=== PATIENT | male | born 1995 | race Caucasian/White ===

== ENCOUNTER 2019-06-21 10:05 | Emergency (ER) | payer OTHER ==
--- NOTE | 2019-06-21 10:30 | ERPHSYRPT ---
- History of Present Illness Time Seen by Provider: 06/21/19 10:30 Source: patient, family Exam Limitations: no limitations Patient Subjective Stated Complaint: states started having lower back pain last night after stooping down to feed his son his bottle. on awakening this am he states pain is much worse. unable to lie flat and is having difficulty with walking due to pain. denies any injury. denies any difficulty with urination. Triage Nursing Assessment: in waiting room was on knees leaning against chair. was able to ambulate to room per self holding lower back. skin w/d, color normal. Physician History: 23 y/o white male presents with left low back pain. no injury. pain began this am. has worsened. vomited tylenol up. vomited because pain so bad Timing/Duration: today Method of Injury: other (no injury) Quality: sharp Back Pain Location: lumbar spine Severity of Pain-Max: moderate Severity of Pain-Current: moderate Modifying Factors: Improves With: movement Associated Symptoms: lower back pain, muscle spasms (left) Previous symptoms: no prior history Allergies/Adverse Reactions: No Known Drug Allergies Allergy (Unverified 06/21/19 10:18) Hx Tetanus, Diphtheria Vaccination/Date Given: No Hx Influenza Vaccination/Date Given: No Hx Pneumococcal Vaccination/Date Given: No - Review of Systems Constitutional: No Symptoms Eyes: No Symptoms Ears, Nose, & Throat: No Symptoms Respiratory: No Symptoms Cardiac: No Symptoms Abdominal/Gastrointestinal: No Symptoms Genitourinary Symptoms: No Symptoms Musculoskeletal: Back Pain Skin: No Symptoms Neurological: No Symptoms Psychological: No Symptoms Endocrine: No Symptoms Hematologic/Lymphatic: No Symptoms Immunological/Allergic: No Symptoms All Other Systems: Reviewed and Negative - Past Medical History Pertinent Past Medical History: Yes Neurological History: No Pertinent History ENT History: No Pertinent History Cardiac History: No Pertinent History Respiratory History: No Pertinent History Endocrine Medical History: No Pertinent History Musculoskeletal History: No Pertinent History GI Medical History: Diverticulosis History: No Pertinent History Psycho-Social History: No Pertinent History Male Reproductive Disorders: No Pertinent History - Past Surgical History Past Surgical History: No Neuro Surgical History: No Pertinent History Cardiac: No Pertinent History Respiratory: No Pertinent History Gastrointestinal: No Pertinent History Genitourinary: No Pertinent History Musculoskeletal: No Pertinent History Male Surgical History: No Pertinent History - Social History Smoking Status: Never smoker Exposure to second hand smoke: No Drug Use: marijuana Patient Lives Alone: No - Nursing Vital Signs Nursing Vital Signs: Initial Vital Signs Temperature 97.5 F 06/21/19 10:10 Pulse Rate 70 06/21/19 10:10 Respiratory Rate 18 06/21/19 10:10 Blood Pressure 120/75 06/21/19 10:10 O2 Sat by Pulse Oximetry 97 06/21/19 10:10 Pain Scale Pain Intensity [Back] 6 Pain Intensity 6 - Physical Exam General Appearance: mild distress, alert, anxiety Eye Exam: PERRL/EOMI, eyes nml inspection Ears, Nose, Throat Exam: normal ENT inspection, moist mucous membranes Neck Exam: normal inspection, non-tender, supple, full range of motion Respiratory Exam: normal breath sounds, lungs clear, airway intact, No chest tenderness, No respiratory distress Cardiovascular Exam: regular rate/rhythm, normal heart sounds, normal peripheral pulses Gastrointestinal Exam: soft, normal bowel sounds, No tenderness Rectal Exam: not done Back Exam: normal inspection, normal range of motion, muscle spasm (left lower lumbar ), No CVA tenderness, No vertebral tenderness Extremity Exam: normal inspection, normal range of motion, pelvis stable Neurologic Exam: alert, oriented x 3, cooperative, 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 Skin Exam: normal color, warm, dry Lymphatic Exam: No adenopathy SpO2 Interpretation: normal SpO2: 97 O2 Delivery: Room Air - Course Nursing assessment & vital signs reviewed: Yes Ordered Tests: Medication Summary Discontinued Medications Generic Name Dose Route Start Last Admin Trade Name Ilanq PRN Reason Stop Dose Admin Hydrocodone Bitart/Acetaminophen 1 tab 06/21/19 11:02 06/21/19 11:15 Dixon 5/325 Mg PO 06/21/19 11:03 1 tab STAT ONE Administration Hydrocodone Bitart/Acetaminophen Confirm 06/21/19 11:09 Dixon 5/325 Mg Administered 06/21/19 11:10 Dose 1 tab .ROUTE .STK-MED ONE Cyclobenzaprine HCl 10 mg 06/21/19 11:03 06/21/19 11:15 Cyclobenzaprine 10 Mg PO 06/21/19 11:04 10 mg STAT ONE Administration Cyclobenzaprine HCl Confirm 06/21/19 11:09 Cyclobenzaprine 10 Mg Administered 06/21/19 11:10 Dose 10 mg .ROUTE .STK-MED ONE Methylprednisolone Sodium Succinate 125 mg 06/21/19 11:03 06/21/19 11:16 Solu-Medrol 125 Mg IM 06/21/19 11:04 125 mg STAT ONE Administration Methylprednisolone Sodium Succinate Confirm 06/21/19 11:10 Solu-Medrol 125 Mg Administered 06/21/19 11:11 Dose 125 mg .ROUTE .STK-MED ONE Ondansetron HCl 4 mg 06/21/19 11:02 06/21/19 11:15 Zofran Odt 4 Mg PO 06/21/19 11:03 4 mg STAT ONE Administration Ondansetron HCl Confirm 06/21/19 11:09 Zofran Odt 4 Mg Administered 06/21/19 11:10 Dose 4 mg .ROUTE .STK-MED ONE - Progress Progress: improved, pain not gone completely, re-examined Counseled pt/family regarding: diagnosis, need for follow-up, rad results - Departure Departure Disposition: Home Clinical Impression: Back pain Condition: Stable Critical Care Time: No Referrals: DOCTOR,NO FAMILY [NON-STAFF PHY W/O PRIVILEGES] - Additional Instructions: follow up with primary doctor for persistent symptoms. Forms: Work/School Release Form Prescriptions: Cyclobenzaprine HCl 10 mg [Cyclobenzaprine 10 MG] 10 mg PO TID #10 tablet Prednisone 5 mg [Deltasone 5 mg] 5 mg PO TID #12 tablet
[2019-06-21] MEDS ORDERED: ZOFRAN ODT 4 MG PO ONE (11:02)
[2019-06-21] MEDS ORDERED: NORCO 5/325 MG PO ONE (11:02)
[2019-06-21] MEDS ORDERED: Cyclobenzaprine 10 MG PO ONE (11:03)
[2019-06-21] MEDS ORDERED: solu-MEDROL 125 MG IM ONE (11:03)
[2019-06-21] MEDS ORDERED: NORCO 5/325 MG ONE (11:09)
[2019-06-21] MEDS ORDERED: Cyclobenzaprine 10 MG ONE (11:09)
[2019-06-21] MEDS ORDERED: ZOFRAN ODT 4 MG ONE (11:09)
[2019-06-21] MEDS ORDERED: solu-MEDROL 125 MG ONE (11:10)
[2019-06-21 11:20] VITALS: BP 117/89; PULSE 68
[2019-06-21 11:39] VITALS: O2SAT 97
== END 2019-06-21 12:02 | disposition home or self-care (01) ==
LOC: ED 10:05
DX: M54.5 Low back pain (principal); M62.830 Muscle spasm of back
CPT/HCPCS: 96372; 99284; J2930; Q0162; A9270-GY